=== PATIENT | male | born 1975 | race Caucasian/White ===

== ENCOUNTER 2018-09-05 12:58 | Inpatient (IN) | payer BC, OTHER ==
[~2018-09-05] VITALS: Ht 172.7 cm; Wt 102.1 kg
--- NOTE | 2018-09-05 15:15 | NUR ---
Pre-admission Note Client is in intake karina, he has back turn to the entrance door, he is removing clothes from a bag duffel bag and forcefully placing into another. Nurse called his name and client did not responded. Intake tech inform client that vials signs needed to be taken and a few questions will be asked. Client akwowledge the nurse, he sat on a chair, kept shaking his left lower extremity. Client states, "I am here because of drugs." he reports taking Rebuck, methamphetamine, Percocet, and alcohol, but states when asked when was the first time he started using the substance, 'I don't know lady, ok. I don't remember anything." client then proceeded to put his chin to his chest and be silent. Nurse inform him that she will give him some time off and will return shortly. CN and notified.
--- NOTE | 2018-09-05 15:38 | NUR ---
Admission Note: Client is a 43 year old male admitted for medically supervised withdrawal from ETOH, [place], Percocet, Klonopin, and methamphetamine. Patient stated, "I am here because of drugs." Client reports allergies to Penicillins, develops severe rash. Client is alert and oriented x 4. Client Denies Suicidal ideation, homicidal ideation. Client denies any history of seizures, blackouts, or withdrawal induced delirium. He denies any involuntary psychiatric hospitalizations. Client reports past medical hx" Hypertension, Insomnia, Heart attack (2015). Surgery hx: Stent placement (2015). Client appears clean, avoids eye contact. He is hyperverbal, poor historian, poor insight, and appears easily irritable. He appears to be mildly intoxicated with opioids, pinpoint pupils noted. He reports no s/s of withdrawal from alcohol at this time. He reports withdrawal symptoms are "I get stomach cramps, agitation, irritable, restless, and unable to sleep." CIWA 8. VS BP 150/95, Pulse 93, RR 24, Temp 98.1, spO2 99% on RA, pain 8/10 lower back. PCP: Alfred Counselor: Nancy Soto Home medications" Lipitor, Metoprolol, aspirin 81mg, Lisinopril, and Plavix, he does not remember dosage, and have been weeks since he took these medications last. Substance Use: 1) ETOH (beer) since 23 years old. Client reports drinking 18 cans (12 oz.) Budweiser beer daily for 7-8 year. Last drink was today at 09/04/2018 at 0400 same amount. 2) [place] 10/325mf tabs 15-20 PO daily for the past 8 years, lasy consumed 09/05/18 @ 1200 5 pills. 3) Percocet 10/325mg tabs consumes 6-12 tabs daily for the last year, last consumed, 09/03/18 6 pills. 4) Prescribed Klonopin 2mg PO three times a week for a whole year, last used 08/29/18. 2. Methamphetamine first time used 20 years ago for a while, then quit, he stated, "I stared smoking it again this May." 0.5 - 0.8 gm daily, last used 09/05/18 @ 0400 0.8gm. Client reports no treatment history. Client verbalized with teary eyes that his just barely came back to him after she left him and now he knows that he wants to be sober to be together as a big family. MD Mejia assessed client at intake office. NNO at this time. Education provided regarding the units policies and procedures. All needs met and attended. Will continue to monitor closely.
[2018-09-05 16:22] VITALS: BP 150/95
[2018-09-05] MEDS ORDERED: LOPERAMIDE HCL 2 MG CAPSULE PO PRN ×2 (17:00)
[2018-09-05] MEDS ORDERED: DIAZEPAM 5 MG TABLET PO PRN (17:00)
[2018-09-05] MEDS ORDERED: MAG HYDROX/AL HYDROX/SIMETH 30 ML LIQUID UDC PO PRN (17:00)
[2018-09-05] MEDS ORDERED: ONDANSETRON 4 MG/2 ML VIAL IM PRN (17:00)
[2018-09-05] MEDS ORDERED: ONDANSETRON ODT 4 MG TAB.RAPDIS SL PRN (17:00)
[2018-09-05] MEDS ORDERED: IBUPROFEN 600 MG TABLET PO PRN (17:00)
[2018-09-05] MEDS ORDERED: DICYCLOMINE HCL 20 MG TABLET PO PRN ×2 (17:00)
[2018-09-05] MEDS ORDERED: BUPRENORPHINE HCL 2 MG TAB.SUBL SL PRN (17:00)
[2018-09-05] MEDS ORDERED: THIAMINE HCL 200 MG/2 ML VIAL IM ONE (17:00)
[2018-09-05] MEDS ORDERED: ACETAMINOPHEN 325 MG TABLET PO PRN (17:00)
[2018-09-05] MEDS ORDERED: DIAZEPAM 10 MG TABLET PO PRN (17:00)
[2018-09-05] MEDS ORDERED: MAGNESIUM HYDROXIDE 30 ML LIQUID UDC PO PRN (17:00)
--- NOTE | 2018-09-05 19:30 | NUR ---
END OF SHIFT Client is in the break room, he appears with anxiety, agitation. Last CIWA 8. Will endorse to incoming nurse.
[2018-09-05 19:31] LABS: *AMPHETAMINE, URINE POSITIVE (NEGATIVE); *BARBITURATE, URINE NEGATIVE (NEGATIVE); *CANNABINOID, URINE NEGATIVE (NEGATIVE); *COCCAINE, URINE NEGATIVE (NEGATIVE); *OPIATE, URINE POSITIVE (NEGATIVE); *PHENCYCLIDINE SCREEN,URINE NEGATIVE (NEGATIVE)
--- NOTE | 2018-09-05 19:31 | NUR ---
Start of shift note Received report from day shift nurse. Pt is a 43 yo male, A+Ox4, presenting to [facility] for medically supervised ETOH/Benzo/Opiate withdrawal. Pt was also using Methamphetamines. Pt noted with fine tremors, agitation, irritability, anxiety, and restlessness. Pt has HX of HTN, WI, stent placement, and Parkinson's which will be monitored during shift. Pt is on PRN medications until starting 4 day Subutex and 4 day Valium tapers tomorrow. Respirations even and unlabored. Will continue to monitor.
[2018-09-05 19:47] LABS: BASOPHILS # (AUTO) 0.1 K/uL (0.0-8.0); BASOPHILS % (AUTO) 0.5 % (0.0-2.0); EOSINOPHILS # (AUTO) 0.1 K/uL (0.0-0.7); HEMATOCRIT 43.4 % (36.7-47.1); HEMOGLOBIN 14.7 g/dL (12.5-16.3); LYMPHOCYTES # (AUTO) 2.3 K/uL (20.0-40.0); LYMPHOCYTES % (AUTO) 20.8 % (20.5-51.5); MEAN CORPUSCULAR HEMOGLOBIN 32.8 uug (23.8-33.4); MEAN CORPUSCULAR HGB CONC 34 g/dL (32.5-36.3); MONOCYTES # (AUTO) 1.1 K/uL (2.0-10.0); MONOCYTES % (AUTO) 9.8 % (0.0-11.0); NEUTROPHILS # (AUTO) 7.5 K/uL (1.8-8.9); NEUTROPHILS % (AUTO) 67.9 % (38.5-71.5); PLATELET COUNT (AUTO) 169 K/uL (152-348); RED BLOOD CELL COUNT(AUTO) 4.48 MIL/uL (4.06-5.63); WHITE BLOOD COUNT (AUTO) 11.1 K/uL (3.6-10.2)
[2018-09-05 19:55] LABS: ETHANOL < 3 MG/DL (0-0)
[2018-09-05 19:56] LABS: CARBON DIOXIDE 30 mmol/L (21-32); CHLORIDE 106 mmol/L (98-107); CREATININE 1.1 mg/dL (0.6-1.3); GLUCOSE 92 mg/dL (74-106); POTASSIUM 5.1 mmol/L (3.5-5.1); UREA NITROGEN, BLOOD 15 mg/dL (7-18)
[2018-09-05 19:57] LABS: ALANINE AMINOTRANSFERASE 58 U/L (16-63); ALKALINE PHOSPHATASE 69 U/L (50-136); AMYLASE 35 U/L (25-115); ASPARTATE AMINOTRANSFERASE 21 U/L (15-37); BILIRUBIN,TOTAL 0.6 mg/dL (0.2-1.0); LIPASE 162 U/L (73-393); MAGNESIUM 2.2 mg/dL (1.8-2.4); TOTAL PROTEIN, SERUM 7.2 g/dL (6.4-8.2)
[2018-09-05 20:02] VITALS: BP 150/93
--- NOTE | 2018-09-05 20:02 | NUR ---
COWS and CIWA Assessment COWS: 13 and CIWA: 12. Pt noted with pulse 105, chills, sweat on brow, restlessness, enlarged pupils, mild diffuse discomfort, stuffy nose, fine tremors, anxiety, and agitation. Respirations even and unlabored. Will continue to monitor.
--- NOTE | 2018-09-05 20:03 | NUR ---
PRN Valium 10mg Pt noted with anxiety and CIWA: 12. PRN Valium 10mg given and tolerated well. Will reassess within 1 HR. Will continue to monitor.
[2018-09-05 20:17] LABS: THYROID STIMULATING HORMONE 0.508 mIU/mL (0.358-3.740)
--- NOTE | 2018-09-05 20:57 | NUR ---
PRN Valium 10mg Reassessment Medication effective. Pt expresses reduction of anxiety and CIWA: 8. No s/s of ASE noted at this time. Respirations even and unlabored. Will continue to monitor.
--- NOTE | 2018-09-05 22:47 | NUR ---
PRN Valium 20mg and Benadryl Pt c/o anxiety, inability to sleep, and noted with CIWA: 16. PRN Valium and Benadryl given and tolerated well. Will reassess within 1 HR. Will continue to monitor.
[2018-09-05] MEDS: diphenhydrAMINE 50 MG CAPSULE PO PRN (22:48)
[2018-09-05] MEDS: DIAZEPAM 10 MG TABLET PO PRN (22:48)
--- NOTE | 2018-09-05 23:40 | NUR ---
PRN Valium 20mg and Benadryl Reassessment Medications effective. Pt expresses reduction of anxiety and is resting well in bed. CIWA: 11. No s/s of ASE noted at this time. Respirations even and unlabored. Will continue to monitor.
--- NOTE | 2018-09-06 00:25 | NUR ---
Chest X-ray Chest X-ray done in room. Addendum: 09/07/18 at 0101 by KAUSHAL MADDOX RN Date should be 0025 Addendum: 09/07/18 at 0101 by KAUSHAL MADDOX RN Date should be 09/07/2018 0025
--- NOTE | 2018-09-06 00:55 | NUR ---
V/S refused and COWS and CIWA Assessment deferred for sleep. Respirations even and unlabored. Will continue to monitor.
--- NOTE | 2018-09-06 04:47 | NUR ---
V/S refused and COWS and CIWA Assessment deferred for sleep. Respirations even and unlabored. Will continue to monitor.
--- NOTE | 2018-09-06 07:00 | NUR ---
End of shift note Pt was continuously noted with fine tremors, anxiety, agitation, and restlessness. Pt remained in room for majority of shift except to get food from kitchen and to go smoke on smoking patio. Pt remained compliant and cooperative with all aspects of treatment. Pt was given PRN Valium 10mg @1958 and PRN Valium 20mg and Benadryl @2247. Pt remains on PRN medications and is to start 4 day Subutex and 4 day Valium tapers today, tolerated well. Pt slept for a total of 7 HRS. Last COWS: 13 @2001 and Last CIWA: 11 @2339. Respirations even and unlabored. Will endorse to day shift nurse.
--- NOTE | 2018-09-06 07:30 | NUR ---
Start of Shift Note Pt. is a 43 y/o male admitted for the medically managed withdrawal from ETOH, and Opiates. Pt. was also used methamphetamines, and Klonopin before coming in. Pt. was placed on a 4 day Subutex taper and 4 day valium taper to manage withdrawal symptoms. Endorse from previous shift pt. presented with anxiety, tremors, agitation , and restlessness. Received pt. in room awake getting ready to go out to smoke. Pt. reports feeling an increase sense of anxiety and stated I just want to smoke to calm down. Encourage pt. to verbalize concerns and emotions. Safety measures in place. Will continue to monitor pt.s behavior for safety.
[2018-09-06 08:00] VITALS: BP 141/78
--- NOTE | 2018-09-06 08:00 | NUR ---
COWS/CIWA Assessment COWS of 16 and CIWA of 17. Pt. in room and presents with anxiety, restlessness, body aches, tremors, flushed facial skin, and diaphoresis. Will given medications as ordered. Will continue to monitor pt.'s behavior for safety. Addendum: 09/06/18 at 1731 by CARMEN MEZA RN COWS of 14 and CIWA of 14 not 16 and 17.
[2018-09-06] MEDS: HYDROXYZINE PAMOATE 25 MG CAPSULE PO PRN ×2 (08:44→15:41)
[2018-09-06] MEDS: DIAZEPAM 10 MG TABLET PO SCH ×3 (08:44→20:50)
[2018-09-06] MEDS: BUPRENORPHINE HCL 2 MG TAB.SUBL SL SCH ×3 (08:44→20:49)
[2018-09-06] MEDS: METHOCARBAMOL 750 MG TABLET PO PRN ×2 (08:44→20:49)
[2018-09-06] MEDS: CLONIDINE HCL 0.1 MG TABLET PO PRN ×3 (08:45→20:49)
--- NOTE | 2018-09-06 08:45 | NUR ---
PRN Medication Pt. in room and presents with anxiety, and agitation. Pt. also reports feeling uncomfortable and experiencing body aches. PRN Clonidine, Vistaril, Motrin, and Robaxin given at this time to manage withdrawal symptoms. Will continue to monitor pt.'s behavior for safety and medication effectiveness.
[2018-09-06] MEDS ORDERED: FOLIC ACID 1 MG TABLET PO SCH (09:00)
[2018-09-06] MEDS ORDERED: 4 DAY TAPER VALIUM-SERENITY PROTOCOL PO PRN (09:00)
[2018-09-06] MEDS ORDERED: TUBERCULIN,PURIF.PROT.DERIV. 5 TU/0.1 ML TEST ID ONE (09:00)
[2018-09-06] MEDS ORDERED: 4 DAY TAPER BUPRENORPHINE -SERENITY PROTOCOL SL PRN (09:00)
[2018-09-06] MEDS ORDERED: MULTIVITAMINS,THERAPEUTIC TABLET PO SCH (09:00)
[2018-09-06] MEDS ORDERED: THIAMINE HCL 100 MG TABLET PO SCH (09:00)
--- NOTE | 2018-09-06 09:30 | NUR ---
PRN Re-Assessment Pt. in room and reports a decrease in symptoms. Medication effective. Will continue to monitor pt.'s behavior for safety.
[2018-09-06] MEDS: DIAZEPAM 10 MG TABLET PO PRN (11:42)
--- NOTE | 2018-09-06 11:42 | NUR ---
COWS/CIWA Assessment, PRN Medication. COWS of 16 and CIWA of 17. Pt. noted pacing the hallway becoming progressively more agitated and anxious. Upon approach pt. began to cry and state "I don't know what the fuck I'm doing, I feel so fucking anxious." Re-directed pt. to room where PRN Valium was given per assessment parameters. Pt. continued to state, "I don't know, I feel like such a fucking failure, a failure as a parent and as a , how the fuck did I let this happen, how the fuck did 4 out of 6 of us end up like this, in this fucking place." Sat down and listened to pt. in his room. Pt. continued to verbalize his sorrows regarding his family's drug used. Pt. asked to speak to a field case manager. unclaimed property manager able to speak to him and answer questions regarding her stay. Will continue to monitor pt. for medication effectiveness and safety.
[2018-09-06 12:25] VITALS: BP 124/82
--- NOTE | 2018-09-06 12:59 | NUR ---
COWS/CIWA Assessment PRN Re-Assessment COWS of 13 and CIWA of 14. Pt. in room presenting with anxiety, flushed facial skin, restlessness, tremors, body aches, and agitation. Pt. however states that he feels less anxious and agitated now. Medication effective. Will continue to monitor pt.'s behavior for safety.
[2018-09-06] MEDS ORDERED: DIAZEPAM 10 MG TABLET PO PRN ×2 (13:15)
[2018-09-06] MEDS ORDERED: DIAZEPAM 5 MG TABLET PO PRN (13:15)
--- NOTE | 2018-09-06 14:30 | NUR ---
PRN Re-Assessment Pt. in room and reports a decrease in symptoms. Medication effective. Will continue to monitor pt.'s behavior for safety.
--- NOTE | 2018-09-06 15:50 | NUR ---
PRN Medication Pt. in room and presents with anxiety,agitation, body aches and tremors. PRN Clonidine, and Vistaril given at this time to manage withdrawal symptoms. Will continue to monitor pt.'s behavior for safety and medication effectiveness.
[2018-09-06 16:00] VITALS: BP 131/90
--- NOTE | 2018-09-06 16:00 | NUR ---
COWS/CIWA Assessment COWS of 13 and CIWA of 14. Pt. in room and presents with anxiety, tremors, agitation, restlessness and agitation. Pt. complaint with medication regiment. Will continue to monitor pt.'s behavior for safety and medication effectiveness.
--- NOTE | 2018-09-06 16:30 | NUR ---
PRN Re-Assessment Pt. in room and reports a decrease in symptoms. Medication effective. Will continue to monitor pt.'s behavior for safety.
--- NOTE | 2018-09-06 17:57 | NUR ---
PRN Medication Pt. eating in activities room when he began feeling nauseas and ran back to his room. Pt. had one episode of emesis. PRN Zofran IM given at this time to manage withdrawal symptoms. Will continue to monitor pt. for medication effectiveness and safety..
--- NOTE | 2018-09-06 18:24 | NUR ---
PRN Re-Assessment Pt. denies any feelings of nausea. Medication effective. Will continue to monitor pt.'s behavior for safety.
--- NOTE | 2018-09-06 19:10 | NUR ---
CIWA Assessment/PRN Medication CIWA of 15. Pt. in room complaining of increased anxiety and presenting with tremors, agitation, diaphoresis and restlessness. PRN Valium given at this time to manage withdrawal symptoms. Endorse to oncoming shift to re-assess pt. for medication effectiveness and safety.
--- NOTE | 2018-09-06 19:20 | NUR ---
Start of Shift Note: Patient is a 43 y.o male admitted on 09/05/18 for medically supervised withdrawal from ETOH, [place], Percocet and Klonopin. Patient also reported use of Methamphetamines. Patient is alert & oriented x4. Patient is on a 4-day Subutex and 4-day Valium taper which started today. Patient tolerated medications well. He received PRN Clonidine x2, Vistaril x2, Motrin, Robaxin, Bentyl, Zofran IM, Valium 10mg and Valium 20mg. Last COWS CIWA 14. Will continue to encourage participation in group therapies to learn new coping skills. Educated pt of current plan of care for the night and medication regimen. Encourage pt to increase fluid intake. Safety measures in place. Bed locked in lowest position. Both side rails up. Call light within pt's reach. Will continue to monitor patient.
--- NOTE | 2018-09-06 19:31 | NUR ---
End of Shift Note Pt. is a 43 y/o male admitted for the medically managed withdrawal from ETOH, and Opiates. Pt. was also used methamphetamines, and Klonopin before coming in. Pt. was placed on a 4 day Subutex taper and 4 day valium taper to manage withdrawal symptoms. Throughout shift pt. presented with anxiety, tremors, agitation , nausea, emesis x 1, and restlessness. PRN Zofran, Vistaril, Clonidine, Robaxin, Valium and Motrin given to manage withdrawal symptoms. Safety measures in place. Will endorse pt.s care to oncoming shift.
[2018-09-06 20:00] VITALS: BP 125/79
--- NOTE | 2018-09-06 20:10 | NUR ---
PRN Reassessment Patient verbalized slight decreased in anxiety after Valium medications. Patient still presented with a flushed face, restlessness, anxiety, agitation, and fine tremors. Denies hallucinations. CIWA 14 noted.
--- NOTE | 2018-09-06 20:38 | NUR ---
COWS/CIWA Assessment Patient presented with flushed face, sweating, chills, restlessness, myalgias, stomach cramps, intermittent nausea & vomiting, & fine tremors. Patient is disheveled, unshaven, & malodorous. COWS 17 CIWA 14 noted. Will continue to monitor patient.
[2018-09-06] MEDS: diphenhydrAMINE 50 MG CAPSULE PO PRN (20:49)
--- NOTE | 2018-09-06 20:49 | NUR ---
PRN Administration Patient presented with stomach cramps, myalgias, sweating, chills, & noted with 1 episode of vomiting. Patient still noted with intermittent nausea. Pt also requested medication for sleep. PRN Zofran SL, Bentyl, Robaxin, Benadryl & Clonidine given as ordered. Will monitor for effectiveness of medication.
--- NOTE | 2018-09-06 21:00 | NUR ---
Pt in bed and noted with crackling sound in the lungs, he also complained of non-productive cough and shortness of breath. O2Sat of 86% noted while in bed. Placed pt on O2 @ 1-2lpm to maintain SPO2>95%. Encourage pt to do deep breathing and coughing exercises. Charge nurse made aware and notified MD. Orders noted and carried out. Will continue to monitor patient.
[2018-09-06] MEDS ORDERED: ALBUTEROL SULFATE 2.5 MG/3 ML NEBU NEB PRN (21:45)
[2018-09-06] MEDS ORDERED: GUAIFENESIN/DEXTROMETHORPHAN 5 ML UDC PO PRN (21:45)
--- NOTE | 2018-09-06 21:49 | NUR ---
PRN Reassessment Patient asleep in bed. No more episodes of vomiting noted at this time. Patinet in bed with no facial grimacing noted. Will continue to monitor patient
--- NOTE | 2018-09-06 23:57 | NUR ---
PRN Robitussin Patient noted with non-productive cough. PRN Robitussin given as ordered. Will continue to monitor patient.
[2018-09-07] VITALS: BP 147/77
--- NOTE | 2018-09-07 00:25 | NUR ---
Chest X-ray Chest X-ray done in room.
--- NOTE | 2018-09-07 00:55 | NUR ---
X-ray result relayed X-ray result of Congestive Heart Failure with Diffused Interstitial Edema reported to Charge Nurse. Charge Nurse to call
--- NOTE | 2018-09-07 01:05 | NUR ---
MD COMMUNICATION/PT TRANSFER MD notified of chest XR results and updated pt condition at 0055. Pt transferred to ER per MD order. Pt transferred on ER unit at 0105.
--- NOTE | 2018-09-07 02:10 | NUR ---
PT TRANSFER/DISCHARGE Pt transferred from ER to CCU
[2018-09-07] MEDS ORDERED: BUPRENORPHINE HCL 2 MG TAB.SUBL SL SCH ×2 (09:00→15:00)
[2018-09-07] MEDS ORDERED: DIAZEPAM 5 MG TABLET PO SCH (09:00)
[2018-09-07 10:10] LABS: HEPATITIS B SURFACE AG Negative (Negative)
[2018-09-08] MEDS ORDERED: BUPRENORPHINE HCL 2 MG TAB.SUBL SL SCH (09:00)
[2018-09-08] MEDS ORDERED: DIAZEPAM 5 MG TABLET PO SCH (09:00)
[2018-09-08] MEDS ORDERED: CLOP75TA15 PO ×2 (10:43→20:19)
[2018-09-08] MEDS ORDERED: ATOR40TA PO ×2 (10:43→20:19)
[2018-09-08] MEDS ORDERED: METO50TA16 PO ×2 (10:43→20:19)
[2018-09-08] MEDS ORDERED: ASPI81TA31 PO ×2 (10:43→20:19)
[2018-09-08] MEDS ORDERED: TRAZ-213 PO (20:19)
[2018-09-09] MEDS ORDERED: BUPRENORPHINE HCL 2 MG TAB.SUBL SL SCH (09:00)
[2018-09-09] MEDS ORDERED: DIAZEPAM 5 MG TABLET PO SCH (09:00)
== END 2018-09-07 01:05 | disposition short-term general hospital (02) | DRG 897 ==
LOC: SRC 14:27
PROVIDERS: ADMIT Family Medicine Addiction Medicine; ATTEND Family Medicine Addiction Medicine
PROC: HZ2ZZZZ Detoxification Services for Substance Abuse Treatment (ICD-10-PCS; principal; 2018-09-05)
DX: F10.230 Alcohol dependence with withdrawal, uncomplicated (principal); F11.23 Opioid dependence with withdrawal; Y90.0 Blood alcohol level of less than 20 mg/100 ml; I25.2 Old myocardial infarction; G47.00 Insomnia, unspecified; Z88.0 Allergy status to penicillin; I11.0 Hypertensive heart disease with heart failure; I50.9 Heart failure, unspecified; F15.229 Other stimulant dependence with intoxication, unspecified; F13.239 Sedative, hypnotic or anxiolytic dependence with withdrawal, unspecified; Z95.5 Presence of coronary angioplasty implant and graft; F32.9 Major depressive disorder, single episode, unspecified
CPT/HCPCS: 36415; 71045; 80307; 80324; 80361; 83690; 83735; 84443; 85025; 86580; 86592; 86705; 86803; 87340; 87806; 94664; A4663; G0480; J2405; Q0162; Q0163

== ENCOUNTER 2018-09-07 01:10 | Inpatient (IN) | payer BC, OTHER ==
[2018-09-07] VITALS (10 sets, daily range): BP systolic 110–144; BP diastolic 59–85
[~2018-09-07] VITALS: Ht 175.3 cm; Wt 118.8 kg
--- NOTE | 2018-09-07 01:14 | NUR ---
[facility] PT A/OX4, RESPONSIVE TO VERBAL AND TACTILE STIMULI. PER [facility] RN, PT WAS RECENTLY DIAGNOSED WITH CHF AND WAS REFERRED TO THIS ER BY DR. KAPIL NY. PT DENIES C/P, SOB, N/V/D, DIZZINESS, HEADACHE. UPON ASSESSMENT, PT IS TACHY AND HYPERTENSIVE. WHEEZING UPON LUNG AUSCULTATION. ER MD AT BEDSIDE.
[2018-09-07] MEDS ORDERED: NITROGLYCERIN OINT 1 GM PACKET TP ONE ×2 (01:21→01:30)
[2018-09-07] MEDS ORDERED: NITROGLYCERIN 0.4 MG/TAB BOTTLE SL ONE ×2 (01:21→01:30)
[2018-09-07] MEDS ORDERED: FUROSEMIDE 40 MG/4 ML VIAL ONE (01:21)
[2018-09-07] MEDS ORDERED: ASPIRIN 81 MG TAB.CHEW ONE (01:23)
[2018-09-07] MEDS ORDERED: ASPIRIN 81 MG TAB.CHEW PO ONE (01:30)
[2018-09-07] MEDS ORDERED: FUROSEMIDE 20 MG/2 ML VIAL IV ONE (01:30)
--- NOTE | 2018-09-07 01:30 | NUR ---
CALLED TELE FLOOR FOR BED. SPOKE WITH MAURICE HOLLIDAY. ROOM ASSIGNMENT 204.
--- NOTE | 2018-09-07 01:33 | NUR ---
CALLED [facility] SPOKE WITH NURSE.SHE STATED HAS NONE OF THE MEDS I TOLD HER ABOUT IN HIS CASSETTE. FAR SHE KNEW NOT TAKING ANY HOME MEDS
[2018-09-07 01:36] LABS: BASOPHILS # (AUTO) 0.1 K/uL (0.0-8.0); BASOPHILS % (AUTO) 0.4 % (0.0-2.0); EOSINOPHILS # (AUTO) 0.2 K/uL (0.0-0.7); HEMATOCRIT 42.1 % (36.7-47.1); HEMOGLOBIN 14.2 g/dL (12.5-16.3); LYMPHOCYTES # (AUTO) 1.9 K/uL (20.0-40.0); LYMPHOCYTES % (AUTO) 10.3 % (20.5-51.5); MEAN CORPUSCULAR HGB CONC 34 g/dL (32.5-36.3); MEAN CORPUSCULAR VOLUME 97.8 fL (73.0-96.2); MONOCYTES # (AUTO) 1.3 K/uL (2.0-10.0); MONOCYTES % (AUTO) 6.9 % (0.0-11.0); NEUTROPHILS # (AUTO) 15.3 K/uL (1.8-8.9); NEUTROPHILS % (AUTO) 81.4 % (38.5-71.5); PLATELET COUNT (AUTO) 157 K/uL (152-348); WHITE BLOOD COUNT (AUTO) 18.8 K/uL (3.6-10.2)
--- NOTE | 2018-09-07 01:43 | NUR ---
PT IS VERY DROWSY. FALLING IN AND OUT SLEEP FREQUENTLY. PT'S SPO2 DROPPED TO 85% WHEN PT FELL ASLEEP. PT PLACED ON O2 2 LPM VIA N/C. SPO2 NOW UP TO 94-95%. PT IN BED. BED IN LOW AND LOCKED POSITION WITH BILATERAL SIDERAILS UP FOR SAFETY.
[2018-09-07 01:46] LABS: CREATININE 1.2 mg/dL (0.6-1.3); POTASSIUM 3.8 mmol/L (3.5-5.1)
--- NOTE | 2018-09-07 01:55 | NUR ---
PT ASSISTED OUT OF BED. PT URINATED 400 CC.
--- NOTE | 2018-09-07 01:58 | NUR ---
CALLED EPIC PANEL FOR [facility] AND [facility]ORTER ADMITTING MD. AWAITING CALL-BACK.
[2018-09-07 02:02] LABS: BILIRUBIN,DIRECT 0.1 mg/dL (0.0-0.2); BILIRUBIN,TOTAL 0.2 mg/dL (0.2-1.0); TOTAL PROTEIN, SERUM 6.7 g/dL (6.4-8.2)
--- NOTE | 2018-09-07 02:03 | NUR ---
DR. NY SPEAKING WITH DR. ZARATE RE PT ADMISSION.
--- NOTE | 2018-09-07 02:05 | NUR ---
PT WILL BE ADMITTED TO CCU UNDER THE CARE OF DR. ZARATE. BED ASSIGNMENT CHANGED TO CCU2.
--- NOTE | 2018-09-07 02:10 | NUR ---
DR. NY SPOKE WITH RT RE USE OF CPAP USE.
[2018-09-07] MEDS ORDERED: MAGNESIUM HYDROXIDE 30 ML LIQUID UDC PO PRN (02:15)
[2018-09-07] MEDS ORDERED: HYDROCODONE/APAP 5-325MG TABLET PO PRN (02:15)
[2018-09-07] MEDS ORDERED: ENOXAPARIN SODIUM 40 MG/0.4 ML DISP.SYRIN SQ SCH (02:15)
[2018-09-07] MEDS ORDERED: ACETAMINOPHEN 325 MG TABLET PO PRN (02:15)
[2018-09-07] MEDS ORDERED: Z GUARD REMEDY PASTE 57 GM TUBE TOP PRN (02:15)
[2018-09-07] MEDS ORDERED: ONDANSETRON 4 MG/2 ML VIAL IV PRN (02:15)
--- NOTE | 2018-09-07 02:33 | NUR ---
GAVE ADMITTING REPORT TO MAURICE CUEVAS, IN ICU.
--- NOTE | 2018-09-07 02:35 | NUR ---
PT TRANS TO CCU BY ME ON DURALUMIN MECHANIC VIA [employer].
--- NOTE | 2018-09-07 03:00 | NUR ---
Pt refusing CPAP at this time, RN aware. Pt is on 4L nasal cannula, SpO2 96% at this time. Respiratory tx administered per md order. Will continue to monitor pt.
--- NOTE | 2018-09-07 03:00 | NUR ---
PATIENT RECEIVED FROM ER dx:CHF ,SOB .PATIENT AAOX3/MAEX4. ABLE TO WALK FROM GURNEY TO BED . CONNECTED TO CCU MONITOR AND ORIENTED WITH EQUIPMENT . RESPIRATORY THERAPIST AT BEDSIDE , CONNECTED PATIENT TO CPAP PATIENT STRONGLY REFUSED AND GETS UPSET AND WANTS TO SLEEP .INSTEAD RESPIRATORY THERAPIST GAVE PATIENT BREATHING TREATMENT . HOB UP . TOLERATING 02 NASAL CANNULA AT 4 L MIN .SATURATION 96% RR 24.CONTINUE TO MONITOR V/S AND LEVELS OF COMFORT.
[2018-09-07] MEDS: ALBUTEROL SULFATE 2.5 MG/3 ML NEBU NEB SCH ×6 (03:01→23:30)
--- NOTE | 2018-09-07 04:30 | NUR ---
USES URINAL PRN .PATIENT WANTS TO COME CALLED [facility] SPOKED WITH CHARGE NURSE ,SHE'S NOT ALLOWED TO GET OUT OF THE UNIT SHE WILL CHECKED WITH [employer] THIS AM .
--- NOTE | 2018-09-07 08:00 | NUR ---
Report received. pt remains awake,alert,very anxious.Pt requested his from [facility] to come for visit.[facility],spoke with charge nurse regarding pt request.No c/o chest pain,noSOB noted.
[2018-09-07] MEDS: ASPIRIN 81 MG TAB.CHEW PO SCH (08:47)
[2018-09-07] MEDS: CARVEDILOL 3.125 MG TABLET PO SCH ×2 (08:48→17:20)
[2018-09-07] MEDS ORDERED: FUROSEMIDE 40 MG/4 ML VIAL IV SCH (09:00)
--- NOTE | 2018-09-07 10:00 | NUR ---
Seen,examined by GREG Mora.New orders received.
[2018-09-07] MEDS: CLOPIDOGREL 75 MG TABLET PO SCH (10:09)
--- NOTE | 2018-09-07 11:35 | NUR ---
Seen,examined by with new orders noted.
[2018-09-07] MEDS: POTASSIUM CHLORIDE 20 MEQ TAB.PRT.SR PO SCH ×3 (12:47→14:46)
[2018-09-07] MEDS: FUROSEMIDE 40 MG/4 ML VIAL IV SCH ×3 (12:47→20:03)
--- NOTE | 2018-09-07 14:00 | NUR ---
Patient is very agitated.He wants to leave AMA.Called GREG Mora.Pt states he will stay in the hospital.
--- NOTE | 2018-09-07 18:55 | NUR ---
Pt is anxious again.He is asking for charge nurse from [facility] to speak to him.Called [facility],spoke with charge nurse.Report given to MAURICE Barraza.
--- NOTE | 2018-09-07 20:00 | NUR ---
With permission / GREG Powell patient was upset threatening to go AMA; taken outside to smake X1.
[2018-09-07] MEDS: LORAZEPAM 2 MG/1 ML VIAL IV PRN (20:03)
[2018-09-07] MEDS ORDERED: ATORVASTATIN 10 MG TABLET PO SCH (21:00)
[2018-09-08 00:01] VITALS: BP 132/63
--- NOTE | 2018-09-08 01:27 | NUR ---
Transferred to room 210
--- NOTE | 2018-09-08 01:30 | NUR ---
NSG: PT RECEIVED FR ROSA ISELA RN. A/O X 4, NO ACUTE DISTRESS NOTED. TELE, NSR. ON RA. AMBULATORY WITHOUT ASSISTANCE. BED ALARM ON. CONT TO MONITOR. CALL LIGHT WITHIN REACH.
--- NOTE | 2018-09-08 01:30 | NUR ---
NSG: pt received fr dian RN. a/o x 4, no acute distress noted. on RAPriyanka barry Addendum: 09/08/18 at 0204 by OPAL TROY RN ERROR
[2018-09-08] MEDS: ALBUTEROL SULFATE 2.5 MG/3 ML NEBU NEB SCH ×3 (02:49→11:30)
[2018-09-08 06:21] VITALS: BP 109/48
--- NOTE | 2018-09-08 06:30 | NUR ---
nsg: pt awake, alert, no acute distress noted. denies discomfort. pt stated wants to go back to [facility]. pt informed needs physician to discharge him in order to go back to [facility]. pt denies sob, pain and other discomfort. cont to monitor.
[2018-09-08 06:32] LABS: BASOPHILS # (AUTO) 0.1 K/uL (0.0-8.0); BASOPHILS % (AUTO) 0.5 % (0.0-2.0); EOSINOPHILS # (AUTO) 0.2 K/uL (0.0-0.7); EOSINOPHILS % (AUTO) 1.7 % (0.0-7.0); HEMATOCRIT 43.4 % (36.7-47.1); HEMOGLOBIN 14.7 g/dL (12.5-16.3); LYMPHOCYTES # (AUTO) 2.3 K/uL (20.0-40.0); LYMPHOCYTES % (AUTO) 19.6 % (20.5-51.5); MEAN CORPUSCULAR HEMOGLOBIN 32.9 uug (23.8-33.4); MEAN CORPUSCULAR HGB CONC 34 g/dL (32.5-36.3); MEAN CORPUSCULAR VOLUME 97.1 fL (73.0-96.2); MONOCYTES # (AUTO) 1.3 K/uL (2.0-10.0); MONOCYTES % (AUTO) 10.8 % (0.0-11.0); NEUTROPHILS # (AUTO) 7.8 K/uL (1.8-8.9); NEUTROPHILS % (AUTO) 67.4 % (38.5-71.5); PLATELET COUNT (AUTO) 157 K/uL (152-348); RED BLOOD CELL COUNT(AUTO) 4.47 MIL/uL (4.06-5.63); WHITE BLOOD COUNT (AUTO) 11.6 K/uL (3.6-10.2)
--- NOTE | 2018-09-08 06:44 | NUR ---
nsg: pt informed to use urinal for accurate intake/output of urine. pt still urinates in the toilet without using urinal.
[2018-09-08 06:59] LABS: BILIRUBIN,TOTAL 0.4 mg/dL (0.2-1.0); MAGNESIUM 2.3 mg/dL (1.8-2.4); PHOSPHOROUS 3.1 mg/dL (2.5-4.9); TOTAL PROTEIN, SERUM 7.4 g/dL (6.4-8.2)
--- NOTE | 2018-09-08 07:42 | NUR ---
Awake, alert, oriented x 4, anxious, angry, irritable. He wants to see the doctor to tell that he's okay and he should be back to [facility] or go home. He refused vital signs checked at this time
[2018-09-08 08:00] VITALS: BP 137/92
[2018-09-08] MEDS: ASPIRIN 81 MG TAB.CHEW PO SCH (08:42)
[2018-09-08] MEDS: CLOPIDOGREL 75 MG TABLET PO SCH (08:42)
[2018-09-08] MEDS: CARVEDILOL 3.125 MG TABLET PO SCH (08:42)
--- NOTE | 2018-09-08 08:42 | NUR ---
Patient agreeable for vital signs and taking medication after explanation of plan of care. Had a shower.
[2018-09-08] MEDS ORDERED: ENOXAPARIN SODIUM 40 MG/0.4 ML DISP.SYRIN SQ SCH (09:00)
[2018-09-08] MEDS: LORAZEPAM 2 MG/1 ML VIAL IV PRN (09:14)
--- NOTE | 2018-09-08 09:14 | NUR ---
Anxious, crying, wants to see his and go back to [facility]. Reassured. Ativan IV given.
--- NOTE | 2018-09-08 10:30 | NUR ---
Seen by information systems security analyst, cleared to be discharged back to [facility]. Patient calmer, visited by at bedside
[2018-09-08] MEDS ORDERED: ASPI81TA31 PO ×2 (10:43→20:19)
[2018-09-08] MEDS ORDERED: ATOR40TA PO ×2 (10:43→20:19)
[2018-09-08] MEDS ORDERED: CLOP75TA15 PO ×2 (10:43→20:19)
[2018-09-08] MEDS ORDERED: METO50TA16 PO ×2 (10:43→20:19)
[2018-09-08 11:54] VITALS: BP 138/90
--- NOTE | 2018-09-08 12:47 | NUR ---
With discharge order to [facility]. Tele removed. Saline lock removed. Report given to Rhea. DC instructions given to patient, verbalized understanding.
--- NOTE | 2018-09-08 13:12 | NUR ---
Discharged per ambulatory per patient's request, not in distress, afebrile, brought to [facility] intake office
[2018-09-08] MEDS ORDERED: TRAZ-213 PO (20:19)
[2018-09-08] MEDS ORDERED: METOPROLOL TARTRATE 50 MG TABLET PO SCH (21:00)
[2018-09-08] MEDS ORDERED: ATORVASTATIN 10 MG TABLET PO SCH (21:00)
[2018-09-08] MEDS ORDERED: ATORVASTATIN 40 MG TABLET PO SCH (21:00)
== END 2018-09-08 13:10 | DRG 189 ==
LOC: ER 01:13 → CCU 02:16 → TELE-TD 09-08 01:00
PROVIDERS: ADMIT Internal Medicine; ATTEND Internal Medicine
DX: J96.01 Acute respiratory failure with hypoxia (principal); I50.33 Acute on chronic diastolic (congestive) heart failure; J96.02 Acute respiratory failure with hypercapnia; I11.0 Hypertensive heart disease with heart failure; D72.829 Elevated white blood cell count, unspecified; E66.9 Obesity, unspecified; E78.5 Hyperlipidemia, unspecified; E83.51 Hypocalcemia; F17.210 Nicotine dependence, cigarettes, uncomplicated; I25.10 Atherosclerotic heart disease of native coronary artery without angina pectoris; Z98.61 Coronary angioplasty status; R73.9 Hyperglycemia, unspecified; F10.20 Alcohol dependence, uncomplicated; F19.10 Other psychoactive substance abuse, uncomplicated; Z68.38 Body mass index [BMI] 38.0-38.9, adult; Z71.3 Dietary counseling and surveillance; I25.2 Old myocardial infarction
CPT/HCPCS: 36415; 70030-TC; 71045; 83735; 84100; 85025; 85610; 85730; 87040; 93005; 93307; 94640; 94664; A4663; J1650; J1940; J2060

== ENCOUNTER 2018-09-08 13:38 | Inpatient (IN) | payer BC, OTHER ==
[~2018-09-08] VITALS: Ht 172.7 cm; Wt 102.1 kg
[2018-09-08 13:30] VITALS: BP 151/87
[~2018-09-08 13:38] MED LIST: ASPI81TA31 PO; ATOR40TA PO; CLOP75TA15 PO; METO50TA16 PO
[2018-09-08] MEDS ORDERED: diphenhydrAMINE 50 MG CAPSULE PO PRN (15:00)
[2018-09-08] MEDS ORDERED: LORAZEPAM 1 MG TABLET PO PRN ×2 (15:00)
[2018-09-08] MEDS ORDERED: THIAMINE HCL 200 MG/2 ML VIAL IM ONE (15:00)
[2018-09-08] MEDS ORDERED: ACETAMINOPHEN 325 MG TABLET PO PRN (15:00)
[2018-09-08] MEDS ORDERED: HYDROXYZINE PAMOATE 25 MG CAPSULE PO PRN (15:00)
[2018-09-08] MEDS ORDERED: MAG HYDROX/AL HYDROX/SIMETH 30 ML LIQUID UDC PO PRN (15:00)
[2018-09-08] MEDS ORDERED: LOPERAMIDE HCL 2 MG CAPSULE PO PRN ×2 (15:00)
[2018-09-08] MEDS ORDERED: MAGNESIUM HYDROXIDE 30 ML LIQUID UDC PO PRN (15:00)
[2018-09-08] MEDS ORDERED: LORAZEPAM 2 MG/1 ML VIAL IM PRN (15:00)
[2018-09-08] MEDS: FOLIC ACID 1 MG TABLET PO SCH (15:00)
[2018-09-08 16:00] VITALS: BP 139/89
[2018-09-08] MEDS ORDERED: TRAZODONE 50 MG TABLET PO PRN (18:45)
[2018-09-08 20:00] VITALS: BP 128/84
[2018-09-08] MEDS ORDERED: CLOP75TA15 PO (20:19)
[2018-09-08] MEDS ORDERED: ATOR40TA PO (20:19)
[2018-09-08] MEDS ORDERED: TRAZ-213 PO (20:19)
[2018-09-08] MEDS ORDERED: ASPI81TA31 PO (20:19)
[2018-09-08] MEDS ORDERED: METO50TA16 PO (20:19)
[2018-09-08] MEDS: METOPROLOL TARTRATE 50 MG TABLET PO SCH (20:36)
[2018-09-08] MEDS ORDERED: ATORVASTATIN 40 MG TABLET PO SCH (21:00)
[2018-09-09] VITALS: BP 134/85
[2018-09-09 04:00] VITALS: BP 131/86
[2018-09-09 08:00] VITALS: BP 141/97
[2018-09-09] MEDS: FOLIC ACID 1 MG TABLET PO SCH (08:45)
[2018-09-09] MEDS: METOPROLOL TARTRATE 50 MG TABLET PO SCH (08:45)
[2018-09-09] MEDS ORDERED: ASPIRIN 81 MG TAB.CHEW PO SCH (09:00)
[2018-09-09] MEDS ORDERED: THIAMINE HCL 100 MG TABLET PO SCH (09:00)
[2018-09-09] MEDS ORDERED: MULTIVITAMINS,THERAPEUTIC TABLET PO SCH (09:00)
[2018-09-09] MEDS ORDERED: CLOPIDOGREL 75 MG TABLET PO SCH (09:00)
[2018-09-09] MEDS ORDERED: TUBERCULIN,PURIF.PROT.DERIV. 5 TU/0.1 ML TEST ID ONE (09:00)
== END 2018-09-09 09:25 | disposition home or self-care (01) | DRG 897 ==
LOC: SRC 13:38
PROVIDERS: ADMIT Family Medicine Addiction Medicine; ATTEND Family Medicine Addiction Medicine
PROC: HZ2ZZZZ Detoxification Services for Substance Abuse Treatment (ICD-10-PCS; principal; 2018-09-08)
DX: F10.20 Alcohol dependence, uncomplicated (principal); F11.20 Opioid dependence, uncomplicated; F13.230 Sedative, hypnotic or anxiolytic dependence with withdrawal, uncomplicated; F15.23 Other stimulant dependence with withdrawal; Y90.9 Presence of alcohol in blood, level not specified; G47.00 Insomnia, unspecified; I25.2 Old myocardial infarction; I11.0 Hypertensive heart disease with heart failure; I50.9 Heart failure, unspecified; E78.5 Hyperlipidemia, unspecified; Z95.5 Presence of coronary angioplasty implant and graft; Z79.02 Long term (current) use of antithrombotics/antiplatelets; Z79.82 Long term (current) use of aspirin; Z79.899 Other long term (current) drug therapy; Z88.0 Allergy status to penicillin
CPT/HCPCS: A4663